=== PATIENT | female | born 1945 | race Caucasian/White ===

== ENCOUNTER 2021-07-28 10:03 | Emergency (ER) | payer MEDICARE, OTHER, SELFPAY ==
[2021-07-28] VITALS (69 sets, daily range): BP systolic 114–143; BP diastolic 70–82; PULSE 91–134; RESP 14–26; TEMP 36.1–36.5; O2SAT 94–99
--- NOTE | 2021-07-28 10:15 | RT.EKG_ITS ---
APPROVED REPORT Exam: Resting ECG Reason for Exam: elevated heart rate Patient Location: E HR:106 bpm ECG Measurements Heart Rate 106 AXIS DC 131 P 79 QRSd 90 QRS 67 QT 324 T 3 QTc 430 Conclusion Sinus tachycardia. Probable left atrial enlargement. Probable left ventricular hypertrophy...multiple LVH criteria
--- NOTE | 2021-07-28 10:23 | W.ED.GENAD ---
Discharge Plan Disposition Patient Disposition: HOME Condition: Stable Discharge Details Clinical Impression: Metatarsal fracture, Hyponatremia Primary Care Provider: Rosaura,Local ED Provider: Ky Upton Home Meds and New Rx's Prescriptions: Continued pravastatin 40 mg Tablet 40 mg PO DAILY RF: 0 clonidine 0.1 mg/24 hr Patch Weekly 1 patch TRANSDERMAL QWEEK RF: 0 Discharge Instructions Instructions: Foot Fracture in Adults (ED), Hyponatremia (ED) Additional Instructions: Your sodium level was low today, you were given a liter of IV fluid. Please monitor your salt intake over the next few days. Be sure to be getting enough electrolytes. Your foot CT and x-ray reveals 5 separate fractures. Rest, elevate, cool compresses every 2 hours for 20 minutes. Wear splint and use walker until reevaluation with orthopedics, no weightbearing. [id number] Tylenol and/or Motrin as directed for discomfort. Please watch for new or worsening symptoms and return to the ER for any concerns. I have placed you on the orthopedic list, please call the office of Dr. Ricketts tomorrow morning to have your outpatient appointment Referrals: Matti Ricketts MD [ [facility] STAFF PHYSICIAN] - Discharge Data Discharge Date/Time-TO BE ENTERED AT DEPARTURE: 07/28/21 14:07 Medical Decision Making 76-year-old female denies significant past medical history presenting for left foot pain status post generalized weakness and diarrhea. She reports diarrhea over the weekend, took Imodium, though symptoms are improving. She does present with tachycardia, dry mucous membranes, and unimpressive looking left foot. Will obtain x-ray of her left foot, but given my concern for generalized weakness, dehydration, will obtain IV access, give IV fluids, CBC, CMP, and EKG to better assess her tachycardia.. Patient denies recent antibiotic use. Denies any nausea. Reports the pain is currently mild, does not require any analgesia. She is visiting from [place], was supposed to go home yesterday but because she was not feeling well could not. Her laboratory values do not reveal any obvious emergent process. She does have a sodium of 128, reports a history of Sjogren's syndrome and reports that salt really dries out her mouth and does not typically have salty foods. Initial x-ray reveals fracture of the second, third, fourth metatarsals. Placed a call to our orthopedic provider, Dr. Ricketts for consultation. He will come personally evaluate the patient but recommend CT in the meantime Patient received her liter of IV fluid, heart rate now 94. She appears well, nontoxic. CT imaging reveals 2 other subtle fractures but no evidence of a Lisfranc injury. Once again discussed the case with Dr. Ricketts. Recommend posterior splinting, nonweightbearing, and he will be happy to follow her in the office Patient splinted and a walker with teaching given. She tolerated this well. Strict discharge and return precautions were provided. This documentation was generated using [employer] system, please disregard any oddities of phrase or misspellings. Imaging Data Radiologic Study: Attestation: I personally reviewed and interpreted this imaging study as follows: Imaging: X-Ray and CT Scan Radiologist's impression: Exam(s) XR FOOT LT COMPLETE EXAM: XR FOOT LT COMPLETE CLINICAL HISTORY: fall/pain TECHNIQUE: COMPARISON: No exams were available for comparison FINDINGS: Three views were obtained. There are fractures of the bases of the 2nd through 4th metatarsals with mild displacement. There may be mild comminution of the fracture fragments at the base of each of these metatarsals. No additional fracture identified on plain films and alignment in the Lisfranc region appears grossly intact. If clinically indicated, additional evaluation with CT may be considered to more accurately evaluate fracture anatomy and other potential occult injury. Radiologic Study #2: Attestation: I personally reviewed and interpreted this imaging study as follows: Imaging: CT Scan Radiologist's impression: Exam(s) CT LOWER EXTREMITY LT WO EXAM: CT LOWER EXTREMITY LT WO CLINICAL HISTORY: metatarsal fx x 3 on x ray TECHNIQUE: COMPARISON: No exams were available for comparison FINDINGS: Multi slice CT of the foot was obtained. There are fractures of bases of the 2nd through 4th metatarsals as noted on plain films. These show minimal displacement and mild comminution. Note is also made of a minimally displaced fracture of the plantar aspect of base of 1st metatarsal with minimal displacement. Additionally there is minimally displaced tiny cortical fracture at the base of the 1st metatarsal on its dorsal aspect and a tiny associated cortical fracture of dorsal aspect of the 1st cuneiform. There is no CT evidence of Lisfranc ligament avulsion nor is there widening of any of joint spaces of the Lisfranc region. IMPRESSION: Minimally displaced fractures of 1st through 4th metatarsal bases and dorsal cortex of the 1st cuneiform as described above. No evidence of Lisfranc ligament injury by CT criteria.. Lab Data Lab results reviewed: Yes I reviewed the patient's lab results. Labs: Laboratory Tests Range/Units 07/28/21 07/28/21 07/28/21 10:50 10:50 12:30 WBC (4.4-10.8) 10^3/uL 8.53 RBC (3.93-5.22) 10^6/uL 3.40 L Hgb (11.2-15.7) g/dL 10.9 L Hct (36.0-46.0) % 32.3 L MCV (80-95) fL 95.0 MCH (27.0-33.0) pg 32.1 MCHC (32.0-36.0) % 33.7 RDW (11.7-14.6) % 12.0 Plt Count (130-400) 10^3/uL 194 MPV (8.0-11.0) fL 9.5 Immature Gran % 0.4 Neutrophils % 76.2 Lymphocytes % 15.9 Monocytes % 6.8 Eosinophils % 0.5 Basophils % 0.2 Nucleated RBC % % 0 Absolute Neutrophils (1.2-6.7) 10^3/uL 6.50 Absolute Lymphocytes (1.2-3.4) 10^3/uL 1.36 Absolute Monocytes (0.1-0.8) 10^3/uL 0.58 Absolute Eosinophils (0.0-0.7) 10^3/uL 0.04 Absolute Basophils (0.0-0.2) 10^3/uL 0.02 Sodium (136-145) mmol/L 128 L Potassium (3.5-5.1) mmol/L 3.6 Chloride (98-107) mmol/L 95 L Carbon Dioxide (21.0-32.0) mmol/L 22.8 Anion Gap (3-11) mmol/L 10.2 BUN (7-18) mg/dL 13 Creatinine (0.55-1.02) mg/dL 0.8 Estimated GFR/1.73 m2 (mL/min/1.73m2) >= 60.00 Glucose (74-106) mg/dL 124 H Calcium (8.5-10.1) mg/dL 8.9 Total Bilirubin (0.2-1.0) mg/dL 0.4 AST (15-37) U/L 27 ALT (14-59) U/L 22 Alkaline Phosphatase (46-116) U/L 94 Total Protein (6.4-8.2) g/dL 7.8 Albumin (3.4-5.0) g/dL 3.3 L Lipase (73-393) U/L 87 Urine Color (Yellow) Yellow Urine Clarity (Clear) Clear Urine pH (5-8) 5.5 Ur Specific [place] (1.005-1.025) <= 1.005 Urine Protein (Negative) mg/dL Negative Urine Ketones (Negative) mg/dL 15 H Urine Blood (Negative) Negative Urine Nitrite (Negative) Negative Urine Bilirubin (Negative) Negative Urine Urobilinogen (Up TO 0.2) EU/dL 0.2 Ur Leukocyte Esterase (Negative) Negative Urine Glucose (Negative) mg/dL Negative ECG Data Attestation: I personally reviewed and interpreted this ECG (s) as follows: Interpretation: Please see official report by Dr. Maier. Sinus tachycardia, ventricular of 106. No STEMI HPI General Mode of arrival: ambulatory. Date/Time Provider Initiated Documentation: 07/28/21 10:17. Limitations to Documentation: no limitations. Information obtained by: patient and family. HPI Narrative: This is a 76-year-old female, past medical history of hyperlipidemia, Sjogren's, presenting to the ER for evaluation of left foot pain status post injury she sustained yesterday after falling secondary to generalized weakness. Patient reports that she awoke over the weekend with diarrhea, decreased appetite. She took [id number] Imodium and reports that her diarrhea is improving but has had decreased oral intake since that time. Denies fever, sick contacts, chest pain, shortness of breath, abdominal pain, nausea, vomiting, dysuria. She denies any black tarry stools or bright red blood in her stools. Related Data Home Medications Medication Instructions Recorded Confirmed clonidine 1 patch TRANSDERMAL QWEEK 07/28/21 07/28/21 pravastatin 40 mg PO DAILY 07/28/21 07/28/21 Allergies Allergy/AdvReac Type Severity Reaction Status Date / Time No Known Allergies Allergy Unverified 07/28/21 10:23 General Stated Complaint: Orthopedic SID: 4 Review of Systems Constitutional Constitutional: Denies fatigue and Denies fever(s) Cardiovascular Cardiovascular: Denies chest pain and Denies dyspnea Respiratory Respiratory: Denies chest congestion and Denies dyspnea Gastrointestinal Gastrointestinal: Denies abdominal pain, Denies melena, Denies hematochezia, Reports diarrhea, Denies nausea and Denies vomiting Genitourinary Genitourinary: Denies dysuria Musculoskeletal Musculoskeletal: Denies back pain, Denies numbness and Denies tingling Integumentary/Breasts Skin/Breast: Denies rash Neurologic Neurologic: Denies numbness, Denies tingling and Reports weakness (Generalized) Endocrine Endocrine: Denies fatigue PFSH All Active Problems Metatarsal fracture (Acute) Hyponatremia (Acute) Medical History Breast CA Pulmonary embolism Surgical History History of mastectomy Social History Smoking/Tobacco Use Status: Never Smoking risk assessment performed?: Yes Alcohol Intake: current Alcohol Intake frequency: holidays/special occasions only Drug use: Never Substance use type: does not use Do you feel safe at home: Yes Do you feel safe in your relationship?: Yes Exam Const General: cooperative, healthy appearing, comfortable and no acute distress Orientation: alert, awake and oriented x3 HENMT Head: normal to inspection, normocephalic and atraumatic Face and sinus: normal facial exam Mouth: moist mucous membranes and moist mucous membranes abnormal (Slightly dry) Eyes General: appearance normal, both eyes and all related structures Conjunctivae: conjunctivae normal Neck Neck: normal visual inspection, trachea midline and supple Resp Effort & Inspection: normal respiratory effort and able to speak in complete sentences Auscultation: clear to auscultation bilaterally Cardio Rate: tachycardic (106) Rhythm: regular rhythm GI Inspection: normal to inspection Palpation: soft, not firm, no guarding, no pulsatile masses and nontender Auscultation: normal bowel sounds Back/Spine/Pelvis Back: No back tenderness Skin General skin exam: no rashes or lesions noted Neuro General: patient alert, patient awake, patient oriented x3, moves all extremities and no focal motor deficits Cognition: normal cognition Speech: speech normal Gait: antalgic Motor: muscle tone normal throughout and strength 5/5 throughout Sensory Exam: no sensory deficits noted Coordination: Does not sway with eyes open Extrem General: capillary refill normal Ankle/foot/toe images: 1. Diffuse swelling, ecchymosis, tenderness. No bony deformity. Neuro, vascular, tendon intact. Normal dorsalis pedal pulse and capillary refill. Psych Appearance: grossly normal Mental Status: mental status grossly normal Course Vital Signs Vital signs: Vital Signs Temperature 36.1 C L 07/28/21 10:12 Pulse 131 H 07/28/21 10:12 Blood Pressure 114/70 07/28/21 10:12 Pulse Oximetry 98 07/28/21 10:12 Temperature 36.1 C L 07/28/21 10:12 Temperature Source Temporal Artery Scan 07/28/21 10:12 Pulse 131 H 07/28/21 10:12 Respiratory Effort Non-Labored 07/28/21 10:20 Blood Pressure 114/70 07/28/21 10:12 Blood Pressure Position Sitting 07/28/21 10:12 Pulse Oximetry 98 07/28/21 10:12 Oxygen Delivery Method Room Air 07/28/21 10:12 Oxygen Flow Rate 0 07/28/21 10:12 Pain Level 5 07/28/21 10:12 Procedures Orthopedic Splinting/Casting Injury #1: Side: left Lower Extremity Injury Location: foot Lower Extremity Immobilizer: posterior splint Other Orthopedic Equipment: walker
--- NOTE | 2021-07-28 10:30 | DI.RAD_ITS ---
Exam(s) XR FOOT LT COMPLETE EXAM: XR FOOT LT COMPLETE CLINICAL HISTORY: fall/pain TECHNIQUE: COMPARISON: No exams were available for comparison FINDINGS: Three views were obtained. There are fractures of the bases of the 2nd through 4th metatarsals with mild displacement. There may be mild comminution of the fracture fragments at the base of each of th maribell metatarsals. No additional fracture identified on plain films and alignment in the Lisfranc young on appears grossly intact. If clinically indicated, additional evaluation with CT may be considered to more accurately evaluate fracture anatomy and other potential occult injury. IMPRESSION: RADIATION DOSE DELIVERED: Total DLP
[2021-07-28] MEDS: Normal Saline 1,000 ML 1000 ML IV (11:00)
[2021-07-28 11:03] LABS: Abs Immature Grans 0.03 10^3/uL (0.0-0.06); Absolute Basophil Count 0.02 10^3/uL (0.0-0.2); Absolute Eosinophil Count 0.04 10^3/uL (0.0-0.7); Absolute Lymphocyte Count 1.36 10^3/uL (1.2-3.4); Absolute Monocyte Count 0.58 10^3/uL (0.1-0.8); Basophils % 0.2; Eosinophils % 0.5; HCT 32.3 % (36.0-46.0); HGB 10.9 g/dL (11.2-15.7); Immature Grans % 0.4; Lymphocytes % 15.9; MCH 32.1 pg (27.0-33.0); MCHC 33.7 % (32.0-36.0); MPV 9.5 fL (8.0-11.0); Monocytes % 6.8; Neutrophils % 76.2; Nucleated RBC 0 %; Platelet Count 194 10^3/uL (130-400); RDW-SD 42.2 fL; WBC 8.53 10^3/uL (4.4-10.8)
[2021-07-28 11:16] LABS: ALT 22 U/L (14-59); AST 27 U/L (15-37); Albumin 3.3 g/dL (3.4-5.0); Alkaline Phosphatase 94 U/L (46-116); Anion Gap 10.2 mmol/L (3-11); BUN 13 mg/dL (7-18); Bilirubin, Total 0.4 mg/dL (0.2-1.0); CO2 22.8 mmol/L (21.0-32.0); CREATININE 0.8 mg/dL (0.55-1.02); Calcium 8.9 mg/dL (8.5-10.1); Chloride 95 mmol/L (98-107); Glucose 124 mg/dL (74-106); Potassium 3.6 mmol/L (3.5-5.1); Sodium 128 mmol/L (136-145); Total Protein 7.8 g/dL (6.4-8.2)
[2021-07-28 11:23] LABS: Lipase 87 U/L (73-393)
--- NOTE | 2021-07-28 11:45 | DI.CT_ITS ---
Exam(s) CT LOWER EXTREMITY LT WO EXAM: CT LOWER EXTREMITY LT WO CLINICAL HISTORY: metatarsal fx x 3 on x ray TECHNIQUE: COMPARISON: No exams were available for comparison FINDINGS: Multi slice CT of the foot was obtained. There are fractures of bases of the 2nd through 4th metatar sals as noted on plain films. These show minimal displacement and mild comminution. Note is also made of a minimally displaced fracture of the plantar aspect of base of 1st metatarsal w ith minimal displacement. Additionally there is minimally displaced tiny cortical fracture at the ba se of the 1st metatarsal on its dorsal aspect and a tiny associated cortical fracture of dorsal aspec t of the 1st cuneiform. There is no CT evidence of Lisfranc ligament avulsion nor is there widening of any of joint spaces of the Lisfranc region. IMPRESSION: Minimally displaced fractures of 1st through 4th metatarsal bases and dorsal cortex of the 1st cunei form as described above. No evidence of Lisfranc ligament injury by CT criteria.. RADIATION DOSE DELIVERED: 277.15mGy.cm Total DLP 9.22mGy CTDIvol RADIATION OPTIMIZATION: All CT scans at this facility use at least one of these dose optimization te chniques: automated exposure control; mA and/or kV adjustment per patient size (includes targeted exa ms where dose is matched to clinical indication); or iterative reconstruction.
[2021-07-28 12:45] LABS: Bilirubin Negative (Negative); Blood Negative (Negative); Clarity Clear (Clear); Glucose Negative (Negative); Ketones 15 mg/dL (Negative); Leukocyte Esterase Negative (Negative); Nitrite Negative (Negative); Specific Gravity <= 1.005 (1.005-1.025); Urobilinogen 0.2 EU/dL (Up TO 0.2); pH 5.5 (5-8)
== END 2021-07-28 14:07 | disposition home or self-care (01) ==
PROVIDERS: Emergency Provider Physician Assistant
DX: S92.312A Displaced fracture of first metatarsal bone, left foot, initial encounter for closed fracture (principal); S92.322A Displaced fracture of second metatarsal bone, left foot, initial encounter for closed fracture; S92.332A Displaced fracture of third metatarsal bone, left foot, initial encounter for closed fracture; S92.342A Displaced fracture of fourth metatarsal bone, left foot, initial encounter for closed fracture; W18.39XA Other fall on same level, initial encounter; R00.0 Tachycardia, unspecified; E87.1 Hypo-osmolality and hyponatremia
CPT/HCPCS: 29515; 80053; 83690; 93005; 96360; 96361; 99285; 73630; 73700; 81003; 85025; 93010; 99284

== ENCOUNTER 2021-08-05 12:03 | Outpatient (CLI) | payer MEDICARE, OTHER, SELFPAY ==
--- NOTE | 2021-08-05 11:00 | DI.RAD_ITS ---
Exam(s) XR FOOT LT COMPLETE EXAM: XR FOOT LT COMPLETE CLINICAL HISTORY: f/u lis franc fracture TECHNIQUE: COMPARISON: CR XR FOOT LT COMPLETE from 07/28/2021 FINDINGS: Three views were obtained. Previously described fractures of the 1st through 4th metatarsal bases ar e again noted, the 1st metatarsal base fracture is difficult to appreciate period a cuneiform fractur e noted on prior study of July 28 is also difficult to appreciate period No change in alignment in comparison with previous examination of July 28. IMPRESSION: RADIATION DOSE DELIVERED: Total DLP
== END 2021-08-05 12:04 | disposition home or self-care (01) ==
LOC: DIORS 12:04
PROVIDERS: Visit Provider Physician Assistant Surgical
DX: S92.322A Displaced fracture of second metatarsal bone, left foot, initial encounter for closed fracture; S92.332A Displaced fracture of third metatarsal bone, left foot, initial encounter for closed fracture; S92.342A Displaced fracture of fourth metatarsal bone, left foot, initial encounter for closed fracture; W18.39XA Other fall on same level, initial encounter
CPT/HCPCS: 99214; 73630

== ENCOUNTER 2021-08-21 08:18 | Outpatient (CLI) | payer MEDICARE, OTHER, SELFPAY ==
--- NOTE | 2021-08-21 07:45 | DI.RAD_ITS ---
Exam(s) XR FOOT LT COMPLETE EXAM: XR FOOT LT COMPLETE INDICATION: f/u Lis Franc fracture. COMPARISON: CR XR FOOT LT COMPLETE from 08/05/2021 TECHNIQUE: 2D digital imaging was performed. FINDINGS: Has been no change in the alignment of the fractures at the bases of the 1st through 4th metatarsals. No new abnormalities are seen. Mild disuse osteopenia. DATA REPOSITORY: RADIATION DOSE DELIVERED:
== END 2021-08-21 08:19 | disposition home or self-care (01) ==
LOC: DIORS 08:19
PROVIDERS: Visit Provider Student in an Organized Health Care Education/Training Program
DX: S92.324A Nondisplaced fracture of second metatarsal bone, right foot, initial encounter for closed fracture; S92.334A Nondisplaced fracture of third metatarsal bone, right foot, initial encounter for closed fracture; S92.344A Nondisplaced fracture of fourth metatarsal bone, right foot, initial encounter for closed fracture; X58.XXXA Exposure to other specified factors, initial encounter
CPT/HCPCS: 99213; 73630